=== PATIENT | female | born 1955 | race Hispanic/Latino ===

== ENCOUNTER 2019-11-18 11:02 | Emergency (ER) ==
[2019-11-18 11:17] VITALS: BP 109/52
--- NOTE | 2019-11-18 12:37 | Emergency Department Report ---
Chief Complaint: Extremity Injury, Lower Stated Complaint: LEG PAIN Time Seen by Provider: 11/18/19 12:33 - HPI History of Present Illness: pt is a 64 yo female who presents to the ED with c/o chronic back pain and chronic knee pain for a year and a half. she has previously seen a pain specialist for this. she states she is not currently seeing an orthopedic. she has had no acute fall or injury. she states that she presents here to "have a knee replacement and replace the bone" she states she "was going to get xrays here and thought that the emergency room would schedule her surgery". she states she is currently on pain pills, she did not specify which medication. Vitals are normal Patient is presenting for chronic back pain and chronic knee pain which she has had over a year and seen pain specialist for in the past She has had no acute fall or injury Patient will be referred to an orthopedic doctor, discussed the importance of follow-up with patient Medical screening performed and there is no threat to life or limb at this time - Exam Vital Signs: Vital Signs 11/18/19 11:15 Temperature 98.1 F Pulse Rate 71 Respiratory 20 Rate Blood Pressure 109/52 O2 Sat by Pulse 100 Oximetry MSE screening note: Focused history and physical exam performed. ED Disposition for MSE Clinical Impression: Chronic back pain Qualifiers: Back pain location: low back pain Back pain laterality: unspecified Sciatica presence: without sciatica Qualified Code(s): M54.5 - Low back pain Chronic knee pain Qualifiers: Laterality: left Qualified Code(s): M25.562 - Pain in left knee Disposition: Z-07 MED SCREENING EXAM-LEFT Is pt being admited?: No Does the pt Need Aspirin: No Condition: Stable Instructions: Arthralgia (ED) Additional Instructions: please follow up with an orthopedic doctor. it is very important you follow up. may take tylenol or ibuprofen as needed for pain. return to the emergency room for any new or worsening symptoms. Referrals: ISRAEL RABAGO MD [Staff Physician] - 2-3 Days [facility] [Provider Group] - 2-3 Days Time of Disposition: 12:36 Print Language: LIBERIAN
== END 2019-11-18 12:57 | disposition left against medical advice (07) ==
LOC: ED 11:02

== ENCOUNTER 2020-03-15 14:16 | Emergency (ER) | payer MEDICARE ==
[2020-03-15 15:44] LABS: Basophils % (Auto) 0.5 % (0.0-1.8); Eosinophils # (Auto) 0.2 K/mm3 (0.0-0.4); Eosinophils % (Auto) 3.2 % (0.0-4.3); Hematocrit 39.4 % (30.3-42.9); Hemoglobin 13.5 gm/dl (10.1-14.3); Lymphocytes # (Auto) 2.6 K/mm3 (1.2-5.4); Lymphocytes % (Auto) 46.8 % (13.4-35.0); Mean Corpuscular HGB Conc 34 % (30-34); Mean Corpuscular Volume 104 fl (79-97); Monocytes # (Auto) 0.8 K/mm3 (0.0-0.8); Monocytes % (Auto) 14.1 % (0.0-7.3); Platelet Count 132 K/mm3 (140-440); Red Blood Count 3.78 M/mm3 (3.65-5.03)
[2020-03-15 16:03] LABS: Blood Urea Nitrogen 23 mg/dL (7-17); Calcium 9.8 mg/dL (8.4-10.2); Hemolysis Index 9
[2020-03-15 16:05] LABS: BUN/Creatinine Ratio 38
--- NOTE | 2020-03-15 17:01 | Emergency Department Report ---
ED Psych HPI - General Chief Complaint: Psych Stated Complaint: OFF MEDS Time Seen by Provider: 03/15/20 16:18 Source: patient, family Mode of arrival: Ambulatory Limitations: Other (Patient is hard of hearing) - History of Present Illness Initial Comments: 65-year-old female presents to ED for mental health evaluation. Patient lives in a personal snf called [facility]. Patient brought in by caregiver, Kristin Perez. I spoke with her over the phone ([phone]). She states that patient is "being psychotic." States patient is walking at the residents yelling in their faces. She has been washing closed often. She cooks and then will clean the kitchen. Patient has been bringing things from the garbage can outside into the house. Patient will let people come in the kitchen or sit down. Patient has been stating abdominal troubles are recheck. Caregiver states patient was an inpatient at [facility] approximately 6 months ago. She states that the patient is "off her meds," however she is unsure what medications patient is supposed to be taking also unsure of her diagnosis. Patient denies being verbally or physically abusive with anyone. Patient admits she does not get along with her roommate, however she states she is never threatened her in any way. Patient denies any SI or HI. Complaint: other -: unknown Quality: constant Improves With: none Worsens With: none Context: not taking psychiatric Associated Symptoms: denies other symptoms Treatments Prior to Arrival: none - Related Data Home Medications Medication Instructions Recorded Confirmed Last Taken Acetaminophen [Acetaminophen TAB] 2 tab PO Q8H 03/15/20 03/15/20 Unknown Calcium 500-Vit D3 200 Tablet 1 tab PO BID 03/15/20 03/15/20 Unknown Calcium Acetate 1 tab PO DAILY 03/15/20 03/15/20 Unknown Cetirizine HCl 1 tab PO DAILY 03/15/20 03/15/20 Unknown Fluticasone [Flonase] 1 spray INHALATION DAILY 03/15/20 03/15/20 Unknown Allergies Allergy/AdvReac Type Severity Reaction Status Date / Time codeine Allergy Unknown Verified 11/18/19 11:17 ED Review of Systems ROS: Stated complaint: OFF MEDS Other details as noted in HPI Comment: All other systems reviewed and negative Psychiatric: denies: auditory hallucinations, visual hallucinations, homicidal thoughts, suicidal thoughts ED Past Medical Hx - Past Medical History Previous Medical History?: Yes Hx Diabetes: Yes Additional medical history: DDS/ OSTESOPORASIS, DEAF - Surgical History Past Surgical History?: Yes Additional Surgical History: LEG SURGERY /HYSTO - Social History Smoking Status: Current Every Day Smoker Substance Use Type: Prescribed - Medications Home Medications: Home Medications Medication Instructions Recorded Confirmed Last Taken Type Acetaminophen [Acetaminophen TAB] 2 tab PO Q8H 03/15/20 03/15/20 Unknown History Calcium 500-Vit D3 200 Tablet 1 tab PO BID 03/15/20 03/15/20 Unknown History Calcium Acetate 1 tab PO DAILY 03/15/20 03/15/20 Unknown History Cetirizine HCl 1 tab PO DAILY 03/15/20 03/15/20 Unknown History Fluticasone [Flonase] 1 spray INHALATION DAILY 03/15/20 03/15/20 Unknown History ED Physical Exam - General Limitations: Physical Limitation General appearance: alert, in no apparent distress - Head Head exam: Present: atraumatic, normocephalic - Eye Eye exam: Present: normal appearance, EOMI - ENT ENT exam: Present: mucous membranes moist - Neck Neck exam: Present: normal inspection - Respiratory Respiratory exam: Present: normal lung sounds bilaterally. Absent: respiratory distress - Cardiovascular Cardiovascular Exam: Present: regular rate, normal rhythm - GI/Abdominal GI/Abdominal exam: Present: soft. Absent: distended, tenderness - Extremities Exam Extremities exam: Present: normal inspection - Neurological Exam Neurological exam: Present: alert, oriented X3 - Psychiatric Psychiatric exam: Present: normal affect, normal mood. Absent: homicidal ideation, suicidal ideation - Skin Skin exam: Present: warm, dry, intact, normal color ED Course Vital Signs 03/15/20 03/15/20 03/15/20 14:32 18:32 18:33 Temperature 98.0 F Pulse Rate 83 84 Respiratory 14 17 Rate Blood Pressure 141/76 Blood Pressure 122/77 [Left] O2 Sat by Pulse 98 Oximetry 03/15/20 19:48 Temperature 97.8 F Pulse Rate 95 H Respiratory 18 Rate Blood Pressure Blood Pressure 116/62 [Left] O2 Sat by Pulse 96 Oximetry ED Medical Decision Making - Lab Data Result diagrams: 03/15/20 15:17 03/15/20 15:17 - Medical Decision Making 65-year-old female brought to the ED by shipping and receiving material handler for mental health evaluation. Information Assurance Analyst seems to think that patient is psychotic and off of her medications. Patient denies any psychiatric history or taking any psychiatric medications. I do not feel like patient is psychotic. She is alert and oriented x3. She is not exhibiting any agitated behavior or psychoses. Patient denies any SI or HI. Patient is pleasant. She has been seen and evaluated by mental health stock preparer who agrees that patient does not meet inpatient criteria. Patient labs are unremarkable. Patient will be discharged home at this time. Critical care attestation.: If time is entered above; I have spent that time in minutes in the direct care of this critically ill patient, excluding procedure time. ED Disposition Clinical Impression: No problem, feared complaint unfounded Disposition: DC-01 TO HOME OR SELFCARE Is pt being admited?: No Condition: Stable Additional Instructions: OUTPATIENT MENTAL HEALTH RESOURCES [facility], [employer] Dewayne Calero MD: [address] [place] [address] [facility] [address] [place] [address] [place] [address] [facility]: [employer] [address] [place] [address] [place] [address] [phone] [facility]: [facility]: [address] [place] [address] [address] [facility] [place] [address] [facility] [address] [facility]: Jt Napier MD: [address] [facility] [address] [facility] [id number] [facility]: [address] [place], [place] [id number] [phone] [facility]ESS [facility]: Referrals: PRIMARY CAREMD [Primary Care Provider] - 3-5 Days Time of Disposition: 20:43
[2020-03-15 17:03] LABS: Bilirubin,Urine NEG (Negative); Blood,Urine SM (Negative); Color,Urine Straw (Yellow); Mucus,Urine FEW /HPF; Protein,Urine <15 mg/dL mg/dL (Negative); Urobilinogen,Urine < 2.0 mg/dL (<2.0)
[2020-03-15 17:11] LABS: Amphetamine Screen,Urine PRESUMPTIVE NEGATIVE; Benzodiazepines Screen,Urine PRESUMPTIVE NEGATIVE; Cannabinoid Screen,Urine PRESUMPTIVE NEGATIVE; Cocaine Screen,Urine PRESUMPTIVE NEGATIVE; Methadone Screen,Urine PRESUMPTIVE NEGATIVE; Opiate Screen,Urine PRESUMPTIVE NEGATIVE
[2020-03-15] MEDS ORDERED: NICOTINE 14 MG/24 HR PATCH TD ONE (18:20)
[2020-03-16] MEDS ORDERED: ACETAMINOPHEN 325 MG TAB ONE (00:21)
[2020-03-16] MEDS ORDERED: ACETAMINOPHEN 325 MG TAB PO ONE (00:26)
[2020-03-16 09:10] VITALS: BP 126/70
== END 2020-03-16 09:20 | disposition home or self-care (01) ==
LOC: ED 14:16 → EEVIPCON 14:16 → ED 03-16 09:20
DX: E11.9 Type 2 diabetes mellitus without complications (principal); F17.200 Nicotine dependence, unspecified, uncomplicated; Z90.710 Acquired absence of both cervix and uterus; Z71.1 Person with feared health complaint in whom no diagnosis is made; Z98.890 Other specified postprocedural states; Z79.899 Other long term (current) drug therapy; Z88.4 Allergy status to anesthetic agent
CPT/HCPCS: 36415; 80048; 80307; 80320; 81001; 82962; 85025; G0480

== ENCOUNTER 2020-05-20 14:49 | Emergency (ER) | payer MEDICARE ==
[2020-05-20 16:03] VITALS: BP 174/77
[2020-05-20 18:19] LABS: Basophils % (Auto) 0.5 % (0.0-1.8); Eosinophils # (Auto) 0.2 K/mm3 (0.0-0.4); Eosinophils % (Auto) 2.5 % (0.0-4.3); Hematocrit 38.3 % (30.3-42.9); Hemoglobin 13.1 gm/dl (10.1-14.3); Lymphocytes # (Auto) 2.3 K/mm3 (1.2-5.4); Lymphocytes % (Auto) 37.8 % (13.4-35.0); Mean Corpuscular HGB Conc 34 % (30-34); Mean Corpuscular Volume 105 fl (79-97); Monocytes # (Auto) 0.6 K/mm3 (0.0-0.8); Monocytes % (Auto) 9.9 % (0.0-7.3); Platelet Count 206 K/mm3 (140-440); Red Blood Count 3.66 M/mm3 (3.65-5.03); Red Cell Distribution Width 14.3 % (13.2-15.2)
--- NOTE | 2020-05-20 18:31 | XRay Report ---
XR chest routine 2V INDICATION / CLINICAL INFORMATION: productive cough x2 weeks. COMPARISON: None FINDINGS: SUPPORT DEVICES: None. HEART /PULMONARY VASCULATURE: No significant abnormality. LUNGS / PLEURA: The lungs are hyperexpanded, compatible COPD. No focal airspace consolidation or pleu ral effusion. No pneumothorax. ADDITIONAL FINDINGS: Scattered degenerative changes of the thoracic spine. No acute process identifie d. IMPRESSION: 1. No acute findings. Signer Name: Han Hill MD Signed: 05/20/2020 6:27 PM Workstation Name: [id number]
[2020-05-20 18:38] LABS: Alanine Aminotransferase 24 units/L (7-56); Albumin 3.8 g/dL (3.9-5); Blood Urea Nitrogen 19 mg/dL (7-17); Hemolysis Index 20
[2020-05-20 18:47] LABS: BUN/Creatinine Ratio 38
[2020-05-20] MEDS ORDERED: traMADol 50 MG TAB PO ONE (20:21)
--- NOTE | 2020-05-20 21:20 | Emergency Department Report ---
- General Chief Complaint: Upper Respiratory Infection Stated Complaint: COUGH FOR TWO WEEKS Time Seen by Provider: 05/20/20 20:20 Source: patient, EMS Mode of arrival: Wheelchair Limitations: Physical Limitation - History of Present Illness Initial Comments: pt is a 65 y/o female with hx bilat deaf, arrthralgia, who presents cough congestion back pain x2 weeks. Patient states intermittent fever , nausea and sore throat. There is no fever noted in triage tonight. Patient is tolerating p.o. intake. Patient is alert oriented x3. Patient is amatory with steady gait with no respiratory distress. Patient states symptoms are exacerbated by environmental exposure. Symptoms are relieved by nothing tried. MD Complaint: cough, rhinorrhea, nasal congestion - Related Data Home Medications Medication Instructions Recorded Confirmed Last Taken Acetaminophen [Acetaminophen TAB] 2 tab PO Q8H 03/15/20 03/15/20 Unknown Calcium 500-Vit D3 200 Tablet 1 tab PO BID 03/15/20 03/15/20 Unknown Calcium Acetate 1 tab PO DAILY 03/15/20 03/15/20 Unknown Cetirizine HCl 1 tab PO DAILY 03/15/20 03/15/20 Unknown Fluticasone [Flonase] 1 spray INHALATION DAILY 03/15/20 03/15/20 Unknown Previous Rx's Medication Instructions Recorded Last Taken Type Acetaminophen [Tylenol] 650 mg PO QID PRN #30 capsule 05/20/20 Unknown Rx Benzonatate [Tessalon Perles] 100 mg PO Q8HR PRN #30 capsule 05/20/20 Unknown Rx Allergies Allergy/AdvReac Type Severity Reaction Status Date / Time codeine Allergy Unknown Verified 11/18/19 11:17 ED Review of Systems ROS: Stated complaint: COUGH FOR TWO WEEKS Other details as noted in HPI Constitutional: fever. denies: chills Eyes: denies: eye pain, eye discharge, vision change ENT: throat pain, congestion Respiratory: cough. denies: shortness of breath, wheezing Cardiovascular: denies: chest pain, palpitations Gastrointestinal: nausea, diarrhea. denies: abdominal pain, vomiting, constipation Genitourinary: denies: urgency, dysuria, discharge Musculoskeletal: denies: back pain, joint swelling, arthralgia Skin: denies: rash, lesions Neurological: denies: headache, weakness, paresthesias Psychiatric: as per HPI Hematological/Lymphatic: denies: easy bleeding, easy bruising ED Past Medical Hx - Past Medical History Previous Medical History?: Yes Hx Diabetes: Yes Additional medical history: DDS/ OSTESOPORASIS, DEAF - Surgical History Past Surgical History?: Yes Additional Surgical History: LEG SURGERY /HYSTO - Social History Smoking Status: Current Every Day Smoker Substance Use Type: Prescribed - Medications Home Medications: Home Medications Medication Instructions Recorded Confirmed Last Taken Type Acetaminophen [Acetaminophen TAB] 2 tab PO Q8H 03/15/20 03/15/20 Unknown History Calcium 500-Vit D3 200 Tablet 1 tab PO BID 03/15/20 03/15/20 Unknown History Calcium Acetate 1 tab PO DAILY 03/15/20 03/15/20 Unknown History Cetirizine HCl 1 tab PO DAILY 03/15/20 03/15/20 Unknown History Fluticasone [Flonase] 1 spray INHALATION DAILY 03/15/20 03/15/20 Unknown History Acetaminophen [Tylenol] 650 mg PO QID PRN #30 capsule 05/20/20 Unknown Rx Benzonatate [Tessalon Perles] 100 mg PO Q8HR PRN #30 capsule 05/20/20 Unknown Rx ED Physical Exam - General Limitations: Physical Limitation General appearance: alert, in no apparent distress - Head Head exam: Present: atraumatic, normocephalic - Eye Eye exam: Present: normal appearance, PERRL, EOMI Pupils: Present: normal accommodation - ENT ENT exam: Present: normal orophraynx, mucous membranes moist, TM's normal bilaterally, normal external ear exam - Neck Neck exam: Present: normal inspection, full ROM. Absent: tenderness, lymphadenopathy - Respiratory Respiratory exam: Present: normal lung sounds bilaterally, chest wall tenderness (right lateral chest wall pain ). Absent: respiratory distress, wheezes, stridor - Cardiovascular Cardiovascular Exam: Present: regular rate, normal rhythm, normal heart sounds. Absent: systolic murmur, diastolic murmur, rubs, gallop - GI/Abdominal GI/Abdominal exam: Present: soft, normal bowel sounds. Absent: distended, tenderness, guarding, rebound, rigid, bruit, hernia - Rectal Rectal exam: Present: deferred - Extremities Exam Extremities exam: Present: normal inspection, full ROM, normal capillary refill. Absent: tenderness, pedal edema - Back Exam Back exam: Present: normal inspection, full ROM. Absent: tenderness, CVA tenderness (R), CVA tenderness (L), vertebral tenderness - Neurological Exam Neurological exam: Present: alert, oriented X3, CN II-XII intact, normal gait, reflexes normal. Absent: motor sensory deficit - Expanded Neurological Exam Expanded Patient oriented to: Present: person, place, time Speech: Present: fluid speech Motor strength exam: RUE: 5, LUE: 5, RLE: 5, LLE: 5 Best Eye Response (Cowen): (4) open spontaneously Best Motor Response (Cowen): (6) obeys commands Best Verbal Response (Cowen): (5) oriented Cowen Total: 15 - Psychiatric Psychiatric exam: Present: normal affect, normal mood - Skin Skin exam: Present: warm, dry, intact, normal color. Absent: rash ED Course Vital Signs 05/20/20 15:57 Pulse Rate 72 Respiratory 20 Rate Blood Pressure 174/77 [Right] O2 Sat by Pulse 96 Oximetry ED Medical Decision Making - Lab Data Result diagrams: 05/20/20 18:04 05/20/20 18:04 Labs 05/20/20 05/20/20 05/20/20 15:59 18:04 18:04 WBC 6.0 RBC 3.66 Hgb 13.1 Hct 38.3 MCV 105 H MCH 36 H MCHC 34 RDW 14.3 Plt Count 206 Lymph % (Auto) 37.8 H Kendall % (Auto) 9.9 H Eos % (Auto) 2.5 Baso % (Auto) 0.5 Lymph # (Auto) 2.3 Kendall # (Auto) 0.6 Eos # (Auto) 0.2 Baso # (Auto) 0.0 Seg Neutrophils % 49.3 Seg Neutrophils # 3.0 Sodium 138 Potassium 3.2 L Chloride 103.1 Carbon Dioxide 26 Anion Gap 12 BUN 19 H Creatinine 0.5 L Estimated GFR > 60 BUN/Creatinine Ratio 38 Glucose 160 H POC Glucose 109 H Calcium 9.0 Total Bilirubin 0.40 AST 33 ALT 24 Alkaline Phosphatase 125 Total Protein 7.5 Albumin 3.8 L Albumin/Globulin Ratio 1.0 - Radiology Data Radiology results: report reviewed, image reviewed Findings Reporting MD: Han Hill Dictation Time: May 20, 2020 17:27 Circus Rider: Not available Correspondence Representative Date: XR chest routine 2V INDICATION / CLINICAL INFORMATION: productive cough x2 weeks. COMPARISON: None FINDINGS: SUPPORT DEVICES: None. HEART /PULMONARY VASCULATURE: No significant abnormality. LUNGS / PLEURA: The lungs are hyperexpanded, compatible COPD. No focal airspace consolidation or pleural effusion. No pneumothorax. ADDITIONAL FINDINGS: Scattered degenerative changes of the thoracic spine. No acute process identified. IMPRESSION: 1. No acute findings. Signer Name: Han Hill MD Signed: 05/20/2020 5:27 PM Workstation Name: [id number] - Medical Decision Making Chest x-ray negative , Lung sounds clear bilat, there is no fever no chills no nausea vomiting,patient is tolerating p.o. intake without symptoms. plan nsaids prn pain, antitussive prn cough, follow up with primary care doctor in 2-3 days. pt verbalized agreement and understanding of discharge plan. Critical care attestation.: If time is entered above; I have spent that time in minutes in the direct care of this critically ill patient, excluding procedure time. ED Disposition Clinical Impression: URI (upper respiratory infection) Qualifiers: URI type: unspecified viral URI Qualified Code(s): J06.9 - Acute upper respiratory infection, unspecified Disposition: DC- TO HOME OR SELFCARE Is pt being admited?: No Does the pt Need Aspirin: No Condition: Stable Instructions: Upper Respiratory Infection, Adult Prescriptions: Benzonatate [Tessalon Perles] 100 mg PO Q8HR PRN #30 capsule PRN Reason: Cough Acetaminophen [Tylenol] 650 mg PO QID PRN #30 capsule PRN Reason: pain Referrals: [facility] [Provider Group] - 3-5 Days Forms: Work/School Release Form(ED) Time of Disposition: 21:33
== END 2020-05-20 22:00 | disposition home or self-care (01) ==
LOC: ED 14:49
DX: J06.9 Acute upper respiratory infection, unspecified (principal); E11.9 Type 2 diabetes mellitus without complications; F17.200 Nicotine dependence, unspecified, uncomplicated; Z79.899 Other long term (current) drug therapy; Z88.4 Allergy status to anesthetic agent
CPT/HCPCS: 36415; 71046; 80053; 82962; 85025